=== PATIENT | female | born 1985 | race Caucasian/White ===

== ENCOUNTER 2017-12-03 07:12 | Day surgery (SDC) | payer OTHER ==
[~2017-12-03 07:12] MED LIST: CEFAZOLIN 2 GM/50 ML (PMX) 50 ML IVPB; SOD CHLORIDE 0.9% 1,000 ML IV
[2017-12-03] MEDS ORDERED: CEFAZOLIN 1 GM INJ (08:49)
[2017-12-03] MEDS ORDERED: PROPOFOL 20 ML (08:49)
[2017-12-03] MEDS ORDERED: ROCURONIUM 50 MG INJ (08:49)
[2017-12-03] MEDS ORDERED: FENTAnyl 50 MCG/ML VIAL (08:50)
[2017-12-03] MEDS ORDERED: ROPIVACAINE 0.2% 20 ML VIAL (08:50)
[2017-12-03] MEDS ORDERED: MIDAZOLAM 1 MG/ML 2 ML INJ (08:50)
[2017-12-03] MEDS: BUPIVACAINE 0.25% (MPF) 30 ML INJ (09:04)
[2017-12-03] MEDS: POLYMYXIN/BACITRACIN 1L IRRIG (09:04)
[2017-12-03] MEDS ORDERED: METOCLOPRAMIDE 10 MG INJ (09:10)
[2017-12-03] MEDS ORDERED: SUGAMMADEX SODIUM 200 MG/2 ML VIAL IV (09:10)
[2017-12-03] MEDS ORDERED: KETOROLAC 30 MG INJ (09:10)
[2017-12-03] MEDS ORDERED: DEXAMETHASONE 4 MG/ML 1 ML INJ (09:10)
[2017-12-03] MEDS ORDERED: ONDANSETRON 4 MG INJ ×2 (09:10→09:58)
[2017-12-03] MEDS ORDERED: FENTAnyl 50 MCG/ML VIAL IV ×3 (09:30)
[2017-12-03] MEDS ORDERED: LABETALOL HCL 20MG INJ IV (09:30)
[2017-12-03] MEDS ORDERED: DIPHENHYDRAMINE 50 MG INJ IV (09:30)
[2017-12-03] MEDS ORDERED: MEPERIDINE 25 MG INJ IV (09:30)
[2017-12-03] MEDS ORDERED: METOCLOPRAMIDE 10 MG INJ IV (09:30)
[2017-12-03] MEDS ORDERED: HYDROmorphONE (0.2 MG/ML) 10ML SYG IV ×3 (09:30→09:55)
[2017-12-03] MEDS ORDERED: EPHEDrine SULFATE 50 MG/5 ML SYG IV (09:30)
[2017-12-03] MEDS ORDERED: OXYCODONE/ACETAMINOPHEN (5/325) TAB PO (09:30)
[2017-12-03] MEDS: ONDANSETRON 4 MG INJ IV (10:07)
[2017-12-03] MEDS: HYDROmorphONE (0.2 MG/ML) 10ML SYG IV ×2 (10:07→10:22)
[2017-12-03] MEDS: HYDROCODONE/APAP (5/325) TAB PO (11:32)
== END 2017-12-03 12:50 | disposition home or self-care (01) ==
LOC: SDS 07:12
DX: K43.0 Incisional hernia with obstruction, without gangrene (principal)
CPT/HCPCS: 49655